=== PATIENT | male | born 1965 | race Caucasian/White ===

== ENCOUNTER → 2019-03-30 | Outpatient (CLI) | payer BC, SELFPAY ==
[2019-03-30 14:50] VITALS: BMI 38.3
--- NOTE | 2019-03-30 15:04 | RAD_ITS ---
STUDY: X-RAY - RIGHT SHOULDER REASON FOR EXAM: Shoulder pain, history of dislocation and chip fracture 7 years ago. TECHNIQUE: 4 view(s) of the shoulder. COMPARISON: None. FINDINGS: There is a small marginal osteophyte of the humeral head and mild chondral thinning of the glenohumeral joint. Normal acromioclavicular joint. Normal acromion. There is mild chronic healed fracture deformity of the greater tuberosity. The soft tissue structures are unremarkable. Normal visualized pulmonary apex. RAD/Shoulder min 2 Views IMPRESSION: Mild glenohumeral arthrosis. Mild chronic healed fracture deformity of the greater tuberosity. Electronically Signed: Tomasz Mims MD at 15:40 EDT Tel , Service support ,
== END | disposition home or self-care (01) ==
LOC: HPRAD 15:02
PROVIDERS: Family Provider Family Medicine; PCP Family Medicine; Visit Provider Orthopaedic Surgery
DX: M25.511 Pain in right shoulder (principal)
CPT/HCPCS: 73030

== ENCOUNTER 2019-04-27 15:30 | Outpatient (RCR) | payer BC, SELFPAY ==
[2019-03-30 14:50] VITALS: BMI 38.3
--- NOTE | 2019-03-31 16:59 | HP.PTEVAL_ITS ---
Patient's Visit Information ROBERT BLACK is a 53 year old M referred to Physical Therapy by Donny Salazar DO with a diagnosis of RIGHT SHOULDER STIFFNESS H/O FRACTURE DISLOCATION. Date of Evaluation: 03/31/19 Physical Therapist: Wander Graham, PT, Cert MDT, OCS - Visit Plan Frequency: 2x /Week Duration: 4 Weeks Plan: PT INTERVENTIONS POSTURAL EX'S ,RTC/SCAPULAR STRENGTHENING,ROM,MANUAL THERAPY. MODALTIES NEEDED - Subjective Findings: This 53 y/o male presents to physical therapy with right shoulder pain. Patient had injury 2012 fell off later dislocted right shoulder and fracture and lacerated right finger. Prior PT .Patient noticed pain with certain activities with overhead affects ADL's . Symptoms ache at night. Patient pain located anterior shoulder occassional sharp pain. Pateint pain affects abilty with ADL's and job demands/housework tasks. Pateint had x-rays showed arthritis and tried cortizone. Also ,tried steriod for pain. Denies parathesia/tingling. Pateint pain affects QOL and function: SOCAIL: . 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 NEURO: INTACT. PALPATION: tender AC. AROM: shoulder flexion 120 degrees pain,abduction 140 degrees in scapation ,IR L1. PROM: SUPINE FLEXION 155 ,ABD 16O Degrees ,ER 90 degrees. MMT: RTC 4/5 except supraspinatous 4-/5,deltoid 4-/5,scapular 3+/5 - Special Tests R Shoulder External Rotation Lag Test - RC Tear: Negative R Shoulder Supine Impingement Test - RC Tear: Negative R Shoulder Lift Off Test - Subscapular Tear: Negative R Shoulder Drop Sign - IS Test: Negative R Shoulder Empty Can - SS: Positive R Shoulder Belly Press - SupScap: Negative R Shoulder Neer - Impingement: Positive R Shoulder Roth Timmy - Impingement: Positive R Shoulder Apprehension Test - Anterior Instability: Positive R Shoulder Sulcus Sign - Inferior Laxity: Negative R Shoulder Shrug Sign - OA/Adhesive Capsulitis: Negative - Goals Goal 1:: Independant with HEP Goal Time Frame: 4-6 Weeks Goal 2:: Patient to decrease right shoulder pain by 50% or greater to improve function. Goal Time Frame: 4-6 Weeks Goal 3:: Patient to increase AROM shoulder flexion /abduction 150 degrees to improvefunction with less pain Goal Time Frame: 4-6 Weeks Goal 4:: Patient increase strength RTTC /deltoid 4/5 to improve function with activities above 90 ndegrees. Goal Time Frame: 4-6 Weeks Goal 5:: Patient to improve quick dash score by 5 points or > to improve QOL. Goal Time Frame: 4-6 Weeks - Rehabilitation Potential Physical Therapy Diagnosis: Patient has right shoulder pain with weakness RTC ,decrease ROM with pain .Patient has h/o dislocation and fx 2011 . - Anticipated Interventions Patient/Client Instruction: Educate patient on: Condition, Plan of Care For the Purpose of:: To decrease pain, To improve muscle performance and motor function, To improve ability to perform ADL's, To increase tolerance to activity/condition/position, To improve ability of physical actions for home/c ommunity/work/leisure, To improve health of tissue, To decrease soft tissue restriction, To increase flexibility/ROM, To improve ability to perform tasks related to life management Therapeutic Exercise to Include: Strength training, Postural training, Flexibilty training, Active ROM, Scapular Strength/Stabilization Comment: RTC For the Purpose of:: To decrease pain, To increase ROM, To improve muscle performance and motor function, To improve ability to perform ADL's, To increase tolerance to activity/condition/position, To improve ability of physical actions for home/community/work/leisure, To improve health of tissue, To decrease soft tissue restriction, To increase flexibility/ROM, To improve ability to perform t asks related to life management Manual Therapy Techniques to Include: Mobilization Comment: G-H For the Purpose of:: To decrease pain, To increase ROM, To improve health of tissue, To decrease soft tissue restriction, To increase flexibility/ROM TENS: Yes IF ES: Yes Cryotherapy (ice pack, ice massage): Yes Thermo therapy (hot pack): Yes Ultrasound (thermal/non thermal): Yes For the Purpose of:: To decrease pain, To improve nutrient delivery to tissue, To increase oxygenation perfusion, To improve health of tissue, To decrease soft tissue restriction Thank you for the opportunity to evaluate your patient. For Medicare and Medicare HMO plans, please review the plan of care and approve it. It will need to be FAXED BACK to us at [phone] for Medicare purposes. For Medicare only, by signing this I certify the plan of care. Please let me know if there are questions or concerns regarding this plan of care. Physician Signature: Date:
--- NOTE | 2019-06-14 11:35 | HP.PT.NRP ---
HP - Discharge Summary (1) - Patient Information ROBERT BLACK was seen in my office for initial evaluation on 03/31/19. The following Plan of Care was established for this patient: Initial Frequency: 2x /Week Initial Duration: 4 Weeks - Anticipated Interventions Patient/Client Instruction: Educate patient on: Condition, Plan of Care For the Purpose of:: To decrease pain, To improve muscle performance and motor function, To improve ability to perform ADL's, To increase tolerance to activity/condition/position, To improve ability of physical actions for home/community/work/leisure, To improve health of tissue, To decrease soft tissue restriction, To increase flexibility/ROM, To improve ability to perform tasks related to life management Therapeutic Exercise to Include: Strength training, Postural training, Flexibilty training, Active ROM, Scapular Strength/Stabilization For the Purpose of:: To decrease pain, To increase ROM, To improve muscle performance and motor function, To improve ability to perform ADL's, To increase tolerance to activity/condition/position, To improve ability of physical actions for home/community/work/leisure, To improve health of tissue, To decrease soft tissue restriction, To increase flexibility/ROM, To improve ability to perform tasks related to life management Manual Therapy Techniques to Include: Mobilization Comment: G-H For the Purpose of:: To decrease pain, To increase ROM, To improve health of tissue, To decrease soft tissue restriction, To increase flexibility/ROM TENS: Yes IF ES: Yes Cryotherapy (ice pack, ice massage): Yes Thermo therapy (hot pack): Yes Ultrasound (thermal/non thermal): Yes For the Purpose of:: To decrease pain, To improve nutrient delivery to tissue, To increase oxygenation perfusion, To improve health of tissue, To decrease soft tissue restriction This patient was last seen in our office 04/27/19. Pertinent comments regarding their Physical therapy will appear below: Patient was seen for PT for shoulder painm and h/o dislocation. PATEINT Pt focused on ROM/strengthening and modlaties. Patient was to follow up with Dr Hogan. At this point I will be discontinuing this patient from physical therapy. I would be happy to see this patient again in the future if found appropriate by the physician. Thank you! Wander Graham, PT, Cert MDT, OCS
== END 2019-04-27 19:00 | disposition home or self-care (01) ==
LOC: PT 15:30
PROVIDERS: Family Provider Family Medicine; PCP Family Medicine; Referring Provider Orthopaedic Surgery; Visit Provider Orthopaedic Surgery
DX: M25.619 Stiffness of unspecified shoulder, not elsewhere classified (principal); Z87.828 Personal history of other (healed) physical injury and trauma
CPT/HCPCS: 97014; 97035; 97110; 97161; 97530; G0283

== ENCOUNTER → 2019-06-07 | Outpatient (CLI) | payer BC, SELFPAY ==
[2019-05-02 15:09] VITALS: BMI 38.3
--- NOTE | 2019-06-07 10:20 | RAD_ITS ---
CLINICAL HISTORY: Male, 53 years old. Right shoulder pain. PROCEDURE: ARTHROGRAM - RIGHT SHOULDER CONSENT: The procedure as well as the benefits and possible complications including infection and bleeding were explained to the patient. Informed consent was obtained. FLUOROSCOPY TIME (if supplied): (0:43) minutes/seconds Injection Information: 10 cc of dilute MRI contrast. Number of images obtained: 4 TECHNIQUE: (All elements of maximal sterile barrier technique followed, including US elements as applicable) The patient was in the supine position. The overlying skin was prepped and draped in the usual sterile fashion. Following local anesthetic application and under direct fluoroscopic guidance, a 22-gauge spinal needle was placed into the shoulder joint. 2 cc of Isovue 300 was injected for confirmation. Following this, 10 cc of dilute MRI contrast was injected. RAD/Arthrogram Shoulder IMPRESSION: Successful right shoulder arthrogram for MRI imaging. The patient tolerated the procedure well. Electronically Signed: Colin Borjas, at 13:47 EDT , Service support ,
--- NOTE | 2019-06-07 10:25 | MRI_ITS ---
STUDY: MRI ARTHROGRAM OF RIGHT SHOULDER REASON FOR EXAM: Male, 53 years old. Painful shoulder with movement after dislocation. TECHNIQUE: Multisequence multiplanar imaging of the right shoulder was obtained after the intra-articular administration of 0.08 mL gadolinium and a 10 mL saline solution. COMPARISON: Shoulder x-rays dated March 30, 2019 showing mild osteoarthrosis of the glenoid FINDINGS: Adequate distention of the shoulder joint with contrast. Supraspinatus and infraspinatus tendinosis with thinning/attenuation (coronal series 3 images 6-13). Subscapularis tendinosis with pjgw-[id number]-vmzpcum width tear of the mid fibers measuring approximately 1 cm in widest diameter (axial series 2 images 8-12). Moderate arthrosis of the glenohumeral joint (axial series 2 images 8-12). Nondisplaced tears of both the anterior inferior and posterior inferior glenoid radha (axial series 2 images 11-14). Nondisplaced superior labral tear (coronal series 3 images 11-14). Large Hill-Sachs deformity of the humeral head with cystic change in the proximal humeral head (axial series 2 images 3-8, coronal series 3 images 4-9). Long head of biceps tendinosis (axial series 2 images 7-13). Acromioclavicular joint hypertrophy with narrowing of the subacromial space with bone marrow edema in the distal clavicle and adjacent acromion (coronal series 4 images 13-17). MRI/Upper Ext Jt Only W/Contrast IMPRESSION: Supraspinatus and infraspinatus tendinosis without a full-thickness tear. Subscapularis tendinosis with a full thickness partial width tear of the mid fibers measuring 1 cm in diameter. Moderate arthrosis of the glenohumeral joint. Tears of the anterior, posterior and superior labrum as described. Large Hill-Sachs deformity of the humeral head with cystic changes. Long head of biceps tendinosis. Acromioclavicular joint hypertrophy with narrowing of the subacromial space. Bone marrow edema in the distal clavicle and adjacent acromion. Electronically Signed: Garrett Maldonado MD at 13:34 EDT , Service support ,
== END | disposition home or self-care (01) ==
LOC: RAD 10:19
PROVIDERS: Family Provider Family Medicine; PCP Family Medicine; Referring Provider Orthopaedic Surgery; Visit Provider Orthopaedic Surgery
DX: M19.111 Post-traumatic osteoarthritis, right shoulder (principal)
CPT/HCPCS: 23350; 73040; 73222; 77002; A9575; Q9967

== ENCOUNTER → 2019-07-26 13:27 | Outpatient (CLI) | payer BC, SELFPAY ==
[2019-05-02 15:09] VITALS: BMI 38.3
[2019-07-26 15:28] LABS: Anion Gap 3 (5-15); Chloride 106 mmol/L (98-107); Potassium 3.6 mmol/L (3.5-5.1); Sodium Level 140 mmol/L (136-145)
== END ==
PROVIDERS: Family Provider Family Medicine; PCP Family Medicine; Referring Provider Internal Medicine Pulmonary Disease; Visit Provider Internal Medicine Pulmonary Disease
DX: G47.33 Obstructive sleep apnea (adult) (pediatric) (principal)
CPT/HCPCS: 36415; 80051

== ENCOUNTER → 2023-03-10 | Outpatient (CLI) | payer OTHER, SELFPAY ==
--- NOTE | 2023-03-10 16:45 | RAD_ITS ---
EXAM: XR CHEST, 2 VIEWS CLINICAL INDICATION: cough TECHNIQUE: Frontal and lateral views of the chest. COMPARISON: No relevant prior studies available. FINDINGS: LUNGS AND PLEURAL SPACES: Unremarkable. No consolidation or edema. No pneumothorax. No effusion. HEART: Unremarkable. Cardiac silhouette not enlarged. MEDIASTINUM: Central airways and mediastinal contour are unremarkable. BONES/JOINTS: Unremarkable. SOFT TISSUES: Unremarkable. RAD/Chest PA and Lateral IMPRESSION: No radiographic evidence of acute cardiopulmonary disease. Electronically Signed: Greyson Salcedo MD at 17:21 EDT ,
== END | disposition home or self-care (01) ==
LOC: MTRAD 16:45
PROVIDERS: PCP Internal Medicine; Referring Provider Physician Assistant; Visit Provider Physician Assistant
DX: R05.9 Cough, unspecified (principal)
CPT/HCPCS: 71046

== ENCOUNTER → 2023-04-17 | Outpatient (CLI) | payer OTHER, SELFPAY ==
[2023-04-17 14:58] LABS: Absolute Lymphocyte Count 1.88 X10^3/uL (0.83-4.51); Absolute Neutrophil Count 4.2 X10^3/uL (2.0-7.7); Basophil# 0.05 X10^3/uL; Basophil% 0.7 % (0-1); Eosinophils% 4.3 % (0-5); Hematocrit 43.1 % (40-54); Hemoglobin 13.8 g/dL (13.0-16.5); Lymphocyte # 1.88 X10^3/ul (0.83-4.51); Lymphocyte % 26.7 % (19-41); Mean Corpuscular Hgb 30.1 pg (27.0-32.0); Mean Corpuscular Volume 94.1 fL (80-94); Mean Platelet Vol. 10.3 fl (6.2-12.0); Monocyte# 0.58 X10^3/uL; Monocyte% 8.2 % (0-10); NRBC Flagged by Analyzer 0 % (0-5); Neutrophil % 59.7 % (47-70); Platelet Count 247 K/mm3 (150-450); RBC Distribution Width CV 13.3 % (11.6-14.6); RBC Distribution Width SD 45.3 fl (35.1-43.9); Red Blood Count 4.58 M/mm3 (4.6-6.2)
[2023-04-17 15:37] LABS: Insulin 8.4 mU/L (2.6-37.6); Vitamin D,25 Hydroxy 48.8 ng/mL
[2023-04-17 15:41] LABS: Hemoglobin A1c 5.5 % (3.8-5.6)
[2023-04-17 15:42] LABS: AST(SGOT) 14 U/L (15-37); Alanine Aminotransfer ALT/SGPT 28 U/L (16-61); Albumin, Serum 3.6 g/dL (3.2-5.0); Alkaline Phosphatase 60 U/L (45-117); Anion Gap 6 (5-15); BUN 14 mg/dL (7-18); BUN/Creat Ratio 11.6 RATIO (10-20); Calcium,Total 8.8 mg/dL (8.5-10.1); Chloride 109 mmol/L (98-107); Cholesterol 249 mg/dL (200); Creatinine, Serum 1.21 mg/dL (0.70-1.30); EST Glomerular Filtration Rate 66 mL/min (>60); Est Glom Filt Rate - Afr Amer 80 mL/min (>60); Globulin 3.7 g/dL (2.2-4.2); Glucose 86 mg/dL (74-106); High Density Lipoprotein 50 mg/dL; PSA,Total - Annual Screen 4.55 ng/mL (0.00-4.00); Potassium 3.7 mmol/L (3.5-5.1); Protein, Total 7.3 g/dL (6.4-8.2); Sodium Level 142 mmol/L (136-145); Thyroid Stim Hormone (TSH) 1.94 uIU/mL (0.358-3.74); Triglycerides 114 mg/dL; Very Low Density Lipoprotein 23 mg/dL (5-40)
== END | disposition home or self-care (01) ==
LOC: MTLAB 12:51
PROVIDERS: PCP Internal Medicine; Referring Provider Internal Medicine; Visit Provider Internal Medicine
DX: Z13.220 Encounter for screening for lipoid disorders (principal); E88.81 Metabolic syndrome and other insulin resistance; I10 Essential (primary) hypertension; E78.5 Hyperlipidemia, unspecified; E66.9 Obesity, unspecified; E03.9 Hypothyroidism, unspecified; Z12.5 Encounter for screening for malignant neoplasm of prostate; E55.9 Vitamin D deficiency, unspecified; R73.9 Hyperglycemia, unspecified
CPT/HCPCS: 36415; 80053; 80061; 82306; 83036; 83525; 84153; 84443; 85025; G0103

== ENCOUNTER → 2024-03-19 | Outpatient (CLI) | payer OTHER, SELFPAY ==
[2024-03-19 08:31] LABS: Absolute Lymphocyte Count 1.84 X10^3/uL (0.83-4.51); Absolute Neutrophil Count 4.6 X10^3/uL (2.0-7.7); Basophil# 0.06 X10^3/uL; Basophil% 0.8 % (0-1); Eosinophil# 0.38 X10^3/uL; Hematocrit 43.2 % (40-54); Hemoglobin 13.9 g/dL (13.0-16.5); Lymphocyte # 1.84 X10^3/ul (0.83-4.51); Lymphocyte % 24.3 % (19-41); Mean Corp Hgb Conc 32.2 g/dL (32-36); Mean Corpuscular Volume 93.1 fL (80-94); Mean Platelet Vol. 10.1 fl (6.2-12.0); Monocyte# 0.64 X10^3/uL; Monocyte% 8.5 % (0-10); NRBC Flagged by Analyzer 0 % (0-5); Neutrophil # 4.62 X10^3/uL (2.7-7.7); Neutrophil % 61.1 % (47-70); Platelet Count 231 K/mm3 (150-450); RBC Distribution Width CV 13.3 % (11.6-14.6); RBC Distribution Width SD 45.6 fl (35.1-43.9); Red Blood Count 4.64 M/mm3 (4.6-6.2); White Blood Count 7.6 K/mm3 (4.4-11.0)
[2024-03-19 09:09] LABS: ALB/GLOB Ratio 0.9 RATIO (0.9-2.4); AST(SGOT) 13 U/L (15-37); Alanine Aminotransfer ALT/SGPT 25 U/L (16-61); Albumin, Serum 3.3 g/dL (3.2-5.0); Alkaline Phosphatase 60 U/L (45-117); Anion Gap 5 (5-15); BUN 19 mg/dL (7-18); BUN/Creat Ratio 14.2 RATIO (10-20); Calcium,Total 8.7 mg/dL (8.5-10.1); Chloride 110 mmol/L (98-107); Cholesterol 223 mg/dL (200); Creatinine, Serum 1.34 mg/dL (0.70-1.30); EST Glomerular Filtration Rate 58 mL/min (>60); Est Glom Filt Rate - Afr Amer 71 mL/min (>60); Free T3 2.5 pg/mL (2.18-3.98); Globulin 3.8 g/dL (2.2-4.2); Glucose 100 mg/dL (74-106); High Density Lipoprotein 44 mg/dL; PSA,Total- Diagnostic 4.73 ng/mL (0.0-4.0); Protein, Total 7.1 g/dL (6.4-8.2); Sodium Level 142 mmol/L (136-145); T4 Free Direct 0.87 ng/dL (0.76-1.46); Thyroid Stim Hormone (TSH) 3.35 uIU/mL (0.358-3.74); Triglycerides 145 mg/dL; Very Low Density Lipoprotein 29 mg/dL (5-40)
[2024-03-21 09:52] LABS: Vitamin D,25 Hydroxy 47.4 ng/mL
== END | disposition home or self-care (01) ==
LOC: LAB 07:13
PROVIDERS: PCP Internal Medicine; Referring Provider Internal Medicine; Visit Provider Internal Medicine
DX: R97.20 Elevated prostate specific antigen [PSA] (principal); G47.33 Obstructive sleep apnea (adult) (pediatric); E78.5 Hyperlipidemia, unspecified; E66.9 Obesity, unspecified; E03.9 Hypothyroidism, unspecified; E88.818 Other insulin resistance; E55.9 Vitamin D deficiency, unspecified; Z13.220 Encounter for screening for lipoid disorders; N40.0 Benign prostatic hyperplasia without lower urinary tract symptoms
CPT/HCPCS: 36415; 80053; 80061; 82306; 84153; 84439; 84443; 84481; 85025

== ENCOUNTER 2024-03-31 18:42 | Emergency (ER) | payer OTHER, SELFPAY ==
[2024-03-31 18:43] VITALS: BP 148/96; PULSE 73; RESP 20; TEMP 36.4; O2SAT 95
--- NOTE | 2024-03-31 18:49 | RAD_ITS ---
INDICATION: injury EXAMINATION/TECHNIQUE: X-RAY - LEFT XR Knee Complete 4 Views or More 4 VIEWS COMPARISON: No relevant prior comparison study available FINDINGS: SOFT TISSUES: No soft tissue swelling or gas. No radiopaque foreign body. BONES/JOINTS: No acute fracture or subluxation.. There is normal alignment with the exception of mild lateral subluxation of the patella. Preservation of the joint space.. No sclerotic or destructive changes observed. RAD/Knee 4 or More Views IMPRESSION: 1. No evidence fracture, or focal bony or joint space abnormality. Mild lateral subluxation of the patella. No joint effusion. Electronically Signed: Vivek Lane MD at 19:41 EDT ,
--- NOTE | 2024-03-31 23:03 | ED.VIS.LOWEX ---
HPI History of Present Illness HPI Narrative: Patient presents with left knee pain that began today. Patient states he was going up some steps from the basement. Patient states that the last step was higher than the other ones. Patient states that when he went up the last step, he felt a pop in the back of his left knee. Patient states the pain is throbbing. Patient states it is sharp and stabbing with walking. Patient states it is better with rest. Patient denies any paresthesias or weakness. Patient denies any other injuries. Chief Complaint: Lower Extremity Injury Informant: patient Onset/Context/Timing Onset: Today Context: Sudden Onset Timing: Continuous Quality of Pain: Sharp, Stabbing and Throbbing Location: Left knee Worsened by: Walking Relieved by: Rest Associated Symptoms Associated Symptoms: Negative for Parasthesia, Weakness or Loss of Funtion PFSH [facility] Medical History Elevated PSA Elevated serum creatinine Chronic sinusitis with recurrent bronchitis Hernia Retinal tear of right eye Thyroid disease Abnormal prostate exam Kidney stones Hypoglycemia High blood pressure Carpal tunnel syndrome Arthritis Home Medications ?Medication ?Instructions ?Recorded ?Last Taken ?Type montelukast 10 mg tablet 10 mg PO DAILY 08/08/15 Unknown History cholecalciferol (vitamin D3) 125 5,000 unit PO DAILY 03/30/19 Unknown History mcg (5,000 unit) capsule fexofenadine 180 mg tablet 180 mg PO DAILY 03/30/19 Unknown History magnesium 200 mg tablet 200 mg PO DAILY 03/30/19 Unknown History celecoxib 200 mg capsule 200 mg PO DAILY PRN 01/19/23 Unknown History omega 3 PO 1XD 01/19/23 Unknown History amlodipine 5 mg-valsartan 320 mg 1 tab PO DAILY #90 tabs 02/22/24 Unknown Rx tablet levothyroxine 25 mcg tablet 25 mcg PO DAILY #90 tabs 02/22/24 Unknown Rx Allergy/AdvReac Type Severity Reaction Status Date / Time Environmental Allergies: Allergy Intermediate Other Verified 03/31/24 18:42 Uncoded Penicillins Allergy Unknown Verified 03/31/24 18:42 Iodinated Contrast Media AdvReac Intermediate Hives & Verified 03/31/24 18:42 Breathing Issues Surgical History H/O knee surgery History of cholecystectomy Social History adopted: No household members: family housing: house number of children: 3 current occupational status: employed 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 current occupational exposures/hazards: No pets and animals: Yes leisure activities: other history of recent travel: No sexually active: No Smoking Status: Former smoker how long ago did patient quit smokin years alcohol intake: current details: about 2x a year substance use type: does not use well-balanced diet: daily or most days caffeine: Yes eating out: 1-3 times/week during the past year weight has: remained stable what type of physical activity do you participate in: other iam/mosque: Hindu seatbelt use: always do you feel safe at home: Yes ROS ROS ED Constitutional Constitutional ED: Denies chills or fever(s) Eyes Eyes: Denies blurry vision or change in vision ENT ENT ED: Denies rhinorrhea or sore throat Cardiovascular Cardiovascular: Denies chest pain or palpitations Respiratory/Chest Respiratory/Chest: Denies cough or dyspnea Gastrointestinal Gastrointestinal: Denies nausea or vomiting Genitourinary Genitourinary ED: Denies dysuria or hematuria Musculoskeletal Musculoskeletal: Denies back pain or neck pain Integumentary Denies abscess or rash Neurologic Neurologic: Denies headache(s) or weakness Allergic/Immunologic Allergic/Immunologic ED: Denies mouth swelling or urticaria EXAM Physical Exam Const Vital Signs: 03/31/24 18:43 Temperature 97.5 F L Temperature Source Temporal Pulse Rate 73 Respiratory Rate 20 H Blood Pressure 148/96 H Blood Pressure Mean 113 Pulse Ox 95 Oxygen Delivery Method Room Air Positive well nourished and well developed General Appearance ED: well developed and NAD HEENT Reports moist mucous membranes Neck full ROM and supple Extremity Extremity Narrative: There is tenderness over the posterior aspect of the left knee. There is no edema or ecchymosis. There is no effusion noted. Range of motion was limited in all motions of the left knee secondary to pain. There is no laxity appreciated. However, there is guarding on exam. Varus and valgus stress test were negative. Lilli's test was negative. Pedal pulses are equal bilateral. Strength is 5/5 bilaterally the lower extremities. There are no sensory deficits noted. Extensor mechanism is intact. Neuro oriented x3, CN's II-XII intact bilaterally, moves all extremities and no sensory deficits noted Sensorium / Orientation: alert Motor Exam: strength 5/5 throughout Psych mental status grossly normal MDM MDM MDM Narrative Medical decision making narrative: Differential diagnosis includes occult fracture, loose body, sprain, and contusion. X-rays of the left knee will be obtained to assess for fracture and loose body. Radiography Diagnostic Testing: Clinical Impression(s) from Imaging Studies Knee X-Ray 03/31/24 18:49 IMPRESSION: 1. No evidence fracture, or focal bony or joint space abnormality. Mild lateral subluxation of the patella. No joint effusion. Electronically Signed: Vivek Lane MD at 19:41 EDT , X-rays of the left knee were obtained. There are 4 views. On my independent interpretation, there is no acute fracture or loose body noted. There is no joint effusion noted. Radiologist also interpreted the x-rays and agrees. Treatment and Re-Evaluation Narrative: Patient was advised of his findings. Patient was given a knee immobilizer. Patient was instructed to ice and elevate the left knee. Patient was instructed to follow-up with his primary care physician in 5 to 7 days. Patient was instructed to take Tylenol or ibuprofen as needed for pain. Patient understood and was agreeable with the plan. All questions were answered. Discharge Plan Triage Chief Complaint: Lower Extremity Injury ED Provider: Melvin Metzger Dx/Rx/DC Orders Clinical Impression: Left knee sprain, High blood pressure Instructions: ED Knee Sprain Prescriptions: No Action magnesium 200 mg tablet 200 mg PO DAILY cholecalciferol (vitamin D3) 5,000 unit capsule 5,000 unit PO DAILY fexofenadine 180 mg tablet 180 mg PO DAILY omega 3 PO 1XD Rx Instructions: 1280mg celecoxib 200 mg capsule 200 mg PO DAILY PRN montelukast 10 MG tablet 10 mg PO DAILY levothyroxine 25 mcg tablet 25 mcg PO DAILY Qty: 90 3RF amlodipine-valsartan 5-320 mg tablet 1 tab PO DAILY Qty: 90 3RF Primary Care Provider: Millie Lance Referrals: Millie Lance MD [Primary Care Provider] - 5-7 Days Print Language: Croatian Disposition Disposition: Home, Self Care
[2024-03-31] MEDS: Naproxen 500 MG Tablet PO (23:29)
[2024-03-31 23:37] VITALS: BP 133/87; PULSE 87; RESP 18; TEMP 36.4; O2SAT 99
== END 2024-03-31 23:38 | disposition home or self-care (01) ==
LOC: ED 23:18
PROVIDERS: Emergency Provider Emergency Medicine; PCP Internal Medicine; Visit Provider Emergency Medicine
DX: S83.92XA Sprain of unspecified site of left knee, initial encounter (principal); Z87.891 Personal history of nicotine dependence; I10 Essential (primary) hypertension; X58.XXXA Exposure to other specified factors, initial encounter; Y93.89 Activity, other specified; Z90.49 Acquired absence of other specified parts of digestive tract
CPT/HCPCS: 73564; 99283